=== PATIENT | male | born 1985 | race Caucasian/White ===

== ENCOUNTER 2020-05-07 11:13 | Emergency (ER) | payer OTHER, SELFPAY ==
--- NOTE | ~2020-05-07 | CT_ITS ---
EXAMINATION: CT abdomen pelvis w con INDICATION: Right lower quadrant pain TECHNIQUE: Computed tomographic images of the abdomen and pelvis were obtained after the administrati on of 100 cc of Omnipaque 350 intravenous contrast. The dose-length product (DLP) was 1147.04 mGy-cm. Automated exposure control and iterative reconstruction technique were employed. COMPARISON: None available FINDINGS: Minimal dependent atelectasis is present in the lung bases. The heart size is normal. The l iver, spleen, pancreas, and adrenal glands are normal. Stones are present in the nondistended gallbla dder. The kidneys are unremarkable. No pathologically enlarged abdominal or pelvic lymph nodes are id entified. There is no free intraperitoneal gas or evidence of bowel obstruction. The dilated appendix measures up to 14 mm. There is edematous stranding of the periappendiceal fat. No periappendiceal ab scess or evidence of perforation are identified. IMPRESSION: 1. Acute, uncomplicated appendicitis. Surgical evaluation is recommended. These findings and recommen dations were discussed with Dr. Rosana Butt MD in the Emergency Department at 1300 hours on 0. 2. Cholelithiasis without evidence of cholecystitis. Reviewed, dictated and finalized at location A. IMPRESSION: 1. Acute, uncomplicated appendicitis. Surgical evaluation is recommended. These findings and recommendations were discussed with Dr. Rosana Butt MD in the E mergency Department at 1300 hours on 05/07/2020. 2. Cholelithiasis without evidence of cholecystitis.
[2020-05-07 11:27] VITALS: BP 147/87; PULSE 97; RESP 20; TEMP 36.8; O2SAT 96
--- NOTE | 2020-05-07 11:28 | ED.ABDPAIN ---
HPI - Abdominal Pain General Chief Complaint: Abdominal Pain Stated Complaint: Pain R side Time Seen by Provider: 05/07/20 11:25 History of Present Illness HPI narrative: 34-year-old male is here with chief complaints of right lower abdominal pain that started yesterday evening. The patient states that the pain started as a cramp in the right mid to lower abdomen and has been persistent since then. Patient states that this morning the pain is been worse. He is not hungry. His last meal was last night when he ate some pork chops. He has had 2 episodes of vomiting and 4 episodes of diarrhea. He does complain about mild nausea. He denies any trouble urinating. He denies any associated fever or chills. He denies exposures to COVID-19. The patient states that is usually in good health and has good appetite. He has no known drug allergies. He takes no routine medications. He is a smoker but does not drink alcohol. Related Data Home Medications Medication Instructions Recorded Confirmed No Home Medications 05/07/20 05/07/20 Allergies Allergy/AdvReac Type Severity Reaction Status Date / Time No Known Allergies Allergy Verified 05/07/20 11:26 Review of Systems Review of Systems: All systems reviewed & are unremarkable except as noted in HPI and below Constitutional: Constitutional: Reports fatigue and Reports weakness Eyes: Eyes: Reports as per HPI ENT: Denies dysphagia, Denies vertigo, Denies dizziness, Denies epistaxis, Denies nasal congestion and Denies sore throat Cardiovascular: Cardiovascular: Denies chest pain, Denies rapid heart rate, Denies radiating jaw, neck or arm pain and Denies slow heart rate Respiratory: Respiratory: Denies chest congestion, Denies cough and Denies dyspnea Gastrointestinal: Gastrointestinal: Reports as per HPI, Reports abdominal pain, Reports nausea and Reports vomiting Genitourinary: Genitourinary: Denies penile discharge and Denies testicular pain Integumentary/Breasts: Skin/Breast: Denies pruritus and Denies erythema PMFSH Past Medical History Medical History (Updated 05/07/20 @ 13:31 by Rosana Butt MD) No pertinent past medical history Surgical History Surgical History (Updated 05/07/20 @ 11:46 by Rosana Butt MD) No pertinent past surgical history Social History Social History (Updated 05/07/20 @ 11:47 by Rosana Butt MD) Smoking packs per day: 1 Smoking cigarettes per day: 20.0 Alcohol use details: denies Exam Const: General: healthy appearing and no acute distress Orientation/consciousness: patient oriented x3 HENMT: Head: normal to inspection Ears: external ears normal Mouth: Yes Normal oral and palatal mucosa present and Yes moist mucous membranes Throat: uvula midline Eyes: Pupils: Equal, round and reactive pupils present EOM: EOMs intact bilaterally Neck: Neck: normal visual inspection Chest: Chest palpation & inspection: normal inspection of the chest Resp: Effort & Inspection: normal respiratory effort Auscultation: clear to auscultation bilaterally Cardio: Rate: regular rate Rhythm: regular rhythm GI: GI Palp: Yes Soft to palpation, Yes Tenderness to palpation present (GI) (RUQ and RLQ), Yes Guarding due to palpation present (GI), No Rigid due to palpation and Yes Rebound tenderness present Auscultation: normal bowel sounds Back/Spine/Pelvis: Back: no CVA tenderness and No CVA tenderness Cervical Spine: No collar present Skin: General skin exam: normal color Rashes: no rashes Neuro: General: patient oriented x3, moves all extremities, no meningeal signs, no focal motor deficits and CN's II-XI intact bilaterally Cranial nerves: Yes Nystagmus not present Speech: normal speech Gait exam (Neuro): Normal gait present Extrem: General: normal to inspection, pedal edema present and no edema Psych: Mental Status: mental status grossly normal Thought content: Yes Normal thought content present Course Course Emerge
[2020-05-07] MEDS: KETOROLAC 30 MG/ML VIAL (*BKC) IV PUSH (11:54)
[2020-05-07] MEDS: LACTATED RINGERS 1,000 ML 999 ML IV CONT (11:54)
[2020-05-07 12:05] LABS: Hematocrit 48.3 % (40.0-54.0); Hemoglobin 16.2 g/dL (14.0-18.0); Mean Corpuscular HGB Conc 33.5 g/dL (32.0-36.0); Mean Corpuscular Hemoglobin 31.2 pg (27.0-31.0); Mean Corpuscular Volume 92.9 fL (78.0-102.0); Mean Platelet Volume 10.3 fl (8.7-11.0); Platelet Count Result 251 K/mm3 (150-420); Red Cell Distribution Width 11.9 % (11.6-14.4)
[2020-05-07 12:06] LABS: Add Urine Microscopic? YES; Appearance Urine Clear (Clear); Bilirubin Urine 2+ (Negative); Blood Urine Negative (Negative); Color Urine Yellow (Yellow); Glucose Urine UA Negative (Negative); Ketones Urine 3+ (Negative); Leukocyte Esterase Ur Negative LEU/UL (Negative); Nitrate Urine Negative (Negative); Protein Urine Negative (Negative); Specific Grav Ur >= 1.030 (1.010-1.020)
[2020-05-07 12:10] LABS: White Blood Count 20.4 K/mm3 (4.8-10.8)
[2020-05-07 12:13] LABS: Bacteria Urine 2+ /hpf; Mucus Urine Heavy /lpf; RBC Urine 0-2 /hpf (0-2); Squamous Epithelial Cell Urine None seen /hpf (Few); WBC Urine 0-3 /hpf (0-3)
[2020-05-07 12:14] LABS: INR 1.1; Prothrombin Time 11.1 Seconds (9.64-11.0)
[2020-05-07 12:18] LABS: Alanine Aminotransferase 15 U/L (16-63); Albumin Level 4.7 g/dL (3.4-5.0); Alkaline Phosphatase 73 U/L (46-116); Anion Gap 10 mmol/L (8-16); Aspartate Amino Transferase 11 U/L (15-37); Bilirubin Direct 0.2 mg/dL (0-0.2); Bilirubin,Total 0.8 mg/dL (0.00-1.00); Blood Urea Nitrogen 14 mg/dL (7-18); Carbon Dioxide 23 mmol/L (21-32); Chloride 103 mmol/L (98-108); Estimated CRCL calculation 121 ml/min; Estimated Glomerular Filt Rate > 60; Glucose 119 mg/dL (70-99); Lipase 42 U/L (73-393); Osmolality Calculated 283 mOsm/kg (285-295); Potassium 3.7 mmol/L (3.5-5.1); Sodium 136 mmol/L (136-145); Total Protein 8.4 g/dL (6.4-8.2)
[2020-05-07 12:32] LABS: Band Neutrophils Percent 0 % (0-6); Basophils Percent Manual 1 % (0-1); Eosinophils Percent Manual 0 % (1-6); Lymphocytes Absolute Manual 0.81 K/mm3 (1.1-4.5); Lymphocytes Percent Manual 4 % (18-44); Monocytes Percent Manual 2 % (3-9); Neutrophils Absolute Manual 18.97 K/mm3 (1.3-6.7); Neutrophils Percent Manual 93 % (46-73); Platelet Estimate Adequate (Adequate); Total Cells Counted 100
--- NOTE | 2020-05-07 13:25 | PC.NURSE ---
[facility] TRANSFER LINE CONTACTED. 13[address] DR[address] [facility] ACCEPTED PT FOR TRANSFER. AWAITING BED PLACEMENT.
[2020-05-07 14:06] VITALS: BP 130/74; PULSE 91; RESP 15; TEMP 36.4; O2SAT 100
== END 2020-05-07 14:09 | disposition short-term general hospital (02) ==
PROVIDERS: Emergency Provider Emergency Medicine
DX: K35.80 Unspecified acute appendicitis (principal); F17.200 Nicotine dependence, unspecified, uncomplicated
CPT/HCPCS: 36415; 74177; 80053; 81001; 82248; 83690; 85025; 85610; 96361; 96365; 96375; 99284; 99285; A9270; J1885; J2250; J2543; J3010; J7120; Q9965

== ENCOUNTER 2020-05-07 18:35 | Day surgery (SDC) | payer OTHER, SELFPAY ==
[2020-05-07] VITALS (9 sets, daily range): BP systolic 126–145; BP diastolic 68–86; PULSE 49–78; RESP 13–18; TEMP 36.8–37.1; O2SAT 94–100; BMI 37.3
[2020-05-07] MEDS: LACTATED RINGERS 1,000 ML 30 ML IV CONT (14:45)
--- NOTE | 2020-05-07 15:14 | WPDANESEPPF ---
Anes - Initial Pre Proc Eval Procedure: Operation Date: 05/07/20 15:00 Proposed Procedures p Laparoscopic Appendectomy - Moise Lewis DO Date/Time: 05/07/20 15:14 Surgeon: Moise Lewis DO Pre Op Diagnosis: Acute Appendicitis Patient Data Age: 34 Gender: M Height: Weight: Allergies Allergy/AdvReac Type Severity Reaction Status Date / Time No Known Allergies Allergy Verified 05/07/20 11:26 Home Medications Medication Instructions Recorded Confirmed Type No Home Medications 05/07/20 05/07/20 History Patient hx anesthesia problems: none Family hx anesthesia problems: none PMFSH Past Medical History Medical History Loss of teeth due to extraction Marijuana smoker No pertinent past medical history Obesity Smoker Surgical History Surgical History No pertinent past surgical history Social History Social History Smoking packs per day: 1 Smoking cigarettes per day: 20.0 Anes - Eval Final PreProcedure Day of Procedure 05/07/20 15:14 Patient weight: obese Heart: regular rate and rhythm Lungs: clear to auscultation Airway: Mallampati scale class II and other (edentulous) Neurological: alert and oriented Last oral intake: >/= 8 hours ASA classification: II Emergent: yes Anesthetic plan: proceed Anesthesia type and monitoring: general ETT and standard monitoring Informed Consent: The patient's anesthetic plan and its attendant risks and benefits were discussed with the patient/family/POA. Questions were solicited and answers provided to the satisfaction of the patient/family/POA.
--- NOTE | 2020-05-07 15:20 | PM.IMHP ---
H&P: HPI History of Present Illness Date/Time: 05/07/20 15:20 Chief complaint: Acute Appendicitis Narrative: Shukri Izaguirre is a 34 year old male who presented to [facility] today with right lower quadrant abdominal pain that started last night around 8:00 p.m.. He states that this started as vague abdominal pain but then localized to the right lower quadrant. He has never experienced pain like this in the past. He denies any fevers or chills, but he did have some nausea and vomiting this morning. He has not eaten since last night. In the emergency department he was noted to have an elevated white blood count, and CT showed evidence of acute appendicitis. He was then transferred down to [facility] for further treatment. Review of Systems Review of Systems: All systems reviewed & are unremarkable except as noted in HPI and below Constitutional: Constitutional: Denies chills and Denies fever(s) Eyes: Eyes: Denies change in vision ENT: Denies hearing loss, Denies neck pain and Denies sore throat Cardiovascular: Cardiovascular: Denies chest pain and Denies dyspnea Respiratory: Respiratory: Denies cough, Denies dyspnea and Denies wheezing Gastrointestinal: Gastrointestinal: Reports as per HPI Genitourinary: Genitourinary: Denies hematuria and Denies dysuria Musculoskeletal: Musculoskeletal: Denies arthralgias, Denies joint swelling and Denies neck pain Allergic/Immunologic: Allergic/Immunologic: Denies wheezing PMFSH Past Medical History Medical History Loss of teeth due to extraction Marijuana smoker No pertinent past medical history Obesity Smoker Surgical History Surgical History No pertinent past surgical history Family History Family History (Updated 05/07/20 @ 15:24 by Moise Lewis DO) Mother Heart disease Grandparent Diabetes mellitus Social History Social History Smoking packs per day: 1 Smoking cigarettes per day: 20.0 Meds Home Medications and Allergies Home Medications Medication Instructions Recorded Confirmed Type No Home Medications 05/07/20 05/07/20 History Allergies Allergy/AdvReac Type Severity Reaction Status Date / Time No Known Allergies Allergy Verified 05/07/20 11:26 Exam Const: General: alert; No acute distress Orientation/consciousness: patient oriented x3 Limitations: no limitations HENMT: Head: normocephalic and atraumatic Ears: hearing grossly normal bilaterally General nose exam: Normal external nose present and Normal nares present Mouth: Yes Normal oral and palatal mucosa present and Yes moist mucous membranes Eyes: General: appearance normal, both eyes and all related structures Conjunctivae: conjunctivae normal Sclera: sclerae normal Pupils: Equal, round and reactive pupils present EOM: EOMs intact bilaterally Neck: Neck: normal visual inspection, full ROM, no lymphadenopathy, supple and no JVD Lymphatic: no lymphadenopathy noted Chest: Chest palpation & inspection: normal inspection of the chest Resp: Effort & Inspection: normal respiratory effort and able to speak in complete sentences Auscultation: clear to auscultation bilaterally Percussion: percussion normal Cardio: Jugular venous distension: no JVD Rate: regular rate Rhythm: regular rhythm Heart sounds: S1 normal heart sound present and S2 normal heart sound present Peripheral pulses: Peripheral pulses 2+ throughout GI: Inspection: normal to inspection GI Palp: Yes abdominal tenderness, Yes Soft to palpation, Yes Tenderness to palpation present (GI) (RLQ), No Guarding due to palpation present (GI), No Hernia present and No Rebound tenderness present Percussion: Yes normal to percussion Auscultation: normal bowel sounds : General: Yes no CVA tenderness Back/Spine/Pelvis: Back: no CVA tenderness Skin: General skin exam:
--- NOTE | 2020-05-07 15:27 | WPDHPUPDATE1 ---
History and Physical Update Update Date/Time: 05/07/20 15:27 History and Physical has been reviewed, including an updated exam of the patient. There are NO changes in the patient's condition. Risks, benefits, and alternatives have been discussed and questions answered. Patient agrees to proceed with procedure.
[2020-05-07] MEDS: BUPIVACAINE/EPINEPHRINE 0.5% 30 ML VIAL INFILTRATE (16:12)
--- NOTE | 2020-05-07 16:33 | PM.PROC ---
Procedure Note - Detailed Date of procedure: 05/07/20 Pre-op diagnosis: Acute Appendicitis Post-op diagnosis: same Procedure performed: Laparoscopic Appendectomy Description of procedure: Procedure as well as risks, benefits, and alternatives were explained to the patient. The patient agreed to proceed. Written consent was obtained and placed in chart prior to procedure. The patient was brought back to surgical suite. He was placed supine on operating table. Time-out was done to confirm the patient and procedure. The patient was then intubated by the Anesthesia Department. His abdomen was prepped and draped in sterile fashion using chlorhexidine prep. A 5 mm incision was made just to the left of the patient's umbilicus and a 5 mm Optiview trocar was advanced through the abdominal layers under direct visualization. Once inside the peritoneal cavity, carbon dioxide insufflation was used to create a pneumoperitoneum. The camera was inserted and the abdomen was inspected. No immediate abnormalities were identified. The patient was then placed in slight Trendelenburg position and rotated to the left. A 5 mm incision was made in the suprapubic region in midline and a 5 mm trocar was inserted under direct visualization. A 12 mm incision was made in the left lower quadrant and a 12 mm trocar was inserted under direct visualization. The right lower quadrant was carefully inspected. The cecum was identified and then this was traced back to the appendix. The appendix was identified and grasped at the mesoappendix and lifted anteriorly. Careful blunt dissection was carried out at the base of the appendix through the mesoappendix using a [place] grasper. An echelon-ASH 60 mm blue load stapler was then advanced across the base of the appendix and clamped and fired. A white reload was then clamped across the mesoappendix and fired. This freed up our appendix completely. It was then placed in an EndoCatch bag and removed through the left lower quadrant port. The staple lines were then inspected. Hemostasis appeared adequate and the staple lines appeared secure. The area was then irrigated with sterile saline. The pelvis was then carefully inspected and irrigated with sterile saline as well and the remainder of the abdomen was carefully inspected. The patient was then flattened out in bed. One final inspection was made around the abdominal cavity and no other abnormalities were seen. The left lower quadrant port was removed and a Steve-Reshma cone was used to approximate the fascia with a 0 Vicryl simple interrupted suture. The remaining ports were then removed under direct visualization. The camera was removed and the pneumoperitoneum was released. 0.5% bupivacaine with epinephrine was infiltrated locally around each of the incisions. The skin of the incisions was then approximated using 4-0 Monocryl subcuticular suture and Exofin glue was applied on top. The patient was then awakened from anesthesia, extubated, and transferred to Recovery. Anesthesia: GETA and local (0.5% bupivicaine with epi) Surgeon: Moise Lewis DO Estimated blood loss (mL): 10 Pathology: yes (Appendix) Complications: No immediate complications Condition: stable Disposition: same day Findings: This is 34-year-old man who presented to [facility] with complaints of right lower quadrant abdominal pain. A CT showed evidence of acute appendicitis. He was transferred down to [facility] for further treatment. Decision was made to proceed with urgent laparoscopic appendectomy, possible open. Laparoscopic appendectomy was performed. The appendix was in a slightly retrocecal location. It was indurated and dilated, but there was no evidence of perforation or abscess. The base of the appendix appeared healthy and viable. The appendix was removed and sent to the lab for pathology.
== END 2020-05-07 18:36 | disposition home or self-care (01) ==
LOC: ANHSURGERY 05-08 09:26
PROVIDERS: Visit Provider Surgery
PROC: 0DTJ4ZZ Resection of Appendix, Percutaneous Endoscopic Approach (ICD-10-PCS; CPT 44970; principal; 2020-05-07 15:00)
DX: K35.30 Acute appendicitis with localized peritonitis, without perforation or gangrene (principal); F17.210 Nicotine dependence, cigarettes, uncomplicated; E66.9 Obesity, unspecified; Z68.37 Body mass index [BMI] 37.0-37.9, adult
CPT/HCPCS: 44970; 88304; A9270; J0131; J0330; J1100; J2405; J2704; J3010; J7120

== ENCOUNTER 2020-07-14 14:44 | Emergency (ER) | payer OTHER, SELFPAY ==
--- NOTE | ~2020-07-14 | XR_ITS ---
XR foot RT min 3V DATE: 07/14/2020 15:12 INDICATION: Generalized foot pain. Difficulty bearing weight since surgery one month ago. TECHNIQUE: 4 views COMPARISON: None FINDINGS: No recent fracture or dislocation, periosteal reaction or bone destruction. There is joint space narrowing at the first metatarsophalangeal joint and at some interphalangeal joints, likely con sistent with mild osteoarthritis. Mild plantar calcaneal enthesopathy without evidence of periostitis or erosive change. IMPRESSION: Mild osteoarthritis Mild plantar calcaneal enthesopathy Reviewed, dictated and finalized at location A. [facility]AGGER
--- NOTE | 2020-07-14 14:49 | ED.LOWEXIN ---
HPI - Extremity Injury (Lower) General Chief Complaint: Extremity Problem,Nontraumatic Stated Complaint: foot pain Source: patient and RN notes reviewed Mode of arrival: ambulatory Limitations: no limitations History of Present Illness HPI Narrative: Patient states approximately 2 months ago he was at work and was doing his job as mounting tires on wheels. A tire would not come off the wheel so he kicked it with his foot. Says he kicked backwards with his heel and then about a week later began having pain. He then was laid up due to appendectomy. He recently went back to work and is having heel pain in his right foot when he stands on it for long period of time. He states the pain is not that bad he just wants to know what's wrong. complaint: foot injury Onset (ago): month(s) (2) Injury: Right: foot Type of Injury: blunt Place: work Severity: moderate Relieving factors: nothing Exacerbating factors: weight bearing Context: direct blow Associated symptoms: able to partially bear weight Other symptoms: none Treatments prior to arrival: NSAIDS Related Data Home Medications Medication Instructions Recorded Confirmed No Home Medications 05/22/20 07/14/20 Allergies Allergy/AdvReac Type Severity Reaction Status Date / Time No Known Allergies Allergy Verified 05/22/20 09:39 Review of Systems Review of Systems: All systems reviewed & are unremarkable except as noted in HPI and below PMFSH Past Medical History Medical History Loss of teeth due to extraction Marijuana smoker Obesity Smoker Surgical History Surgical History History of laparoscopic appendectomy Family History Family History Mother Heart disease Grandparent Diabetes mellitus Social History Social History Smoking packs per day: 1 Smoking cigarettes per day: 20.0 Years smoked: 15 Smoking pack-years: 15.00 Smoking status: Current every day smoker Alcohol intake: never Substance use: current Substance use type: marijuana Other substance usage details: 3 TIMES A WEEK Last use: 05/06/2020 Exam Const: General: healthy appearing, no acute distress and alert Nutritional Appearance: well nourished Orientation/consciousness: patient oriented x3 HENMT: Head: normal to inspection Ears: external ears normal Eyes: Conjunctivae: conjunctivae normal Pupils: Equal, round and reactive pupils present EOM: EOMs intact bilaterally Neck: Neck: normal visual inspection Resp: Effort & Inspection: normal respiratory effort Auscultation: clear to auscultation bilaterally Cardio: Rate: regular rate Rhythm: regular rhythm GI: GI Palp: Yes Soft to palpation and No Tenderness to palpation present (GI) Auscultation: normal bowel sounds Back/Spine/Pelvis: Cervical Spine: cervical ROM normal Thoracic/Lumbar Spine: thoraco-lumbar ROM normal Skin: General skin exam: normal color Rashes: no rashes Neuro: General: patient oriented x3, moves all extremities and no focal motor deficits Speech: normal speech Gait exam (Neuro): Normal gait present Extrem: Right lower extremity: foot Details: tenderness Location: of the plantar foot Location: proximally (heel, tender over talus) Psych: Appearance: grossly normal and well kempt Mental Status: mental status grossly normal Affect: normal affect Attitude: cooperative Thought content: Yes Normal thought content present Course Vital Signs Vital signs: Vital Signs Temperature 37.2 C 07/14/20 15:05 Pulse Rate 101 H 07/14/20 15:05 Respiratory Rate 16 07/14/20 15:05 Blood Pressure 142/84 H 07/14/20 15:05 Pulse Oximetry 98 07/14/20 15:05 Temperature 37.2 C 07/14/20 15:05 Pulse Rate 101 H 07/14/20 15:05 Respiratory Rate 16 07/14/20 15:32 Blood Pressure 142/84 H 07/14/20 15:05 Pulse Oximetry 98
[2020-07-14 15:05] VITALS: BP 142/84; PULSE 101; RESP 16; TEMP 37.2; O2SAT 98
[2020-07-14 15:32] VITALS: RESP 16
== END 2020-07-14 15:32 | disposition home or self-care (01) ==
PROVIDERS: Emergency Provider Emergency Medicine
DX: M76.61 Achilles tendinitis, right leg (principal)
CPT/HCPCS: 73630; 99283

== ENCOUNTER 2021-04-07 14:20 | Outpatient (CLI) | payer OTHER, SELFPAY ==
[2021-04-07 14:37] LABS: Hematocrit 48.9 % (40.0-54.0); Hemoglobin 16.5 g/dL (14.0-18.0); Mean Corpuscular HGB Conc 33.7 g/dL (32.0-36.0); Mean Corpuscular Hemoglobin 30.9 pg (27.0-31.0); Mean Corpuscular Volume 91.6 fL (78.0-102.0); Platelet Count Result 302 K/mm3 (150-420); Red Blood Count 5.34 M/mm3 (4.70-6.10); White Blood Count 12.1 K/mm3 (4.8-10.8)
[2021-04-07 15:10] LABS: Alanine Aminotransferase 30 U/L (16-63); Albumin Level 4.4 g/dL (3.4-5.0); Alkaline Phosphatase 95 U/L (46-116); Anion Gap 12 mmol/L (8-16); Aspartate Amino Transferase 15 U/L (15-37); Bilirubin,Total 0.5 mg/dL (0.00-1.00); Blood Urea Nitrogen 12 mg/dL (7-18); Calcium 9.1 mg/dL (8.5-10.1); Carbon Dioxide 27 mmol/L (21-32); Chloride 104 mmol/L (98-108); Cholesterol 197 mg/dL (0-200); Estimated Glomerular Filt Rate > 60; Glucose 85 mg/dL (70-99); HDL Direct 40 mg/dL (40-60); LDL Cholesterol Calculated 138 mg/dL (<130); Osmolality Calculated 294 mOsm/kg (285-295); Potassium 4.3 mmol/L (3.5-5.1); Sodium 143 mmol/L (136-145); Triglycerides 93 mg/dL (0-150)
== END 2021-04-07 14:21 | disposition home or self-care (01) ==
LOC: CHSLAB 14:23
PROVIDERS: PCP Family Medicine; Visit Provider Family Medicine
DX: Z00.00 Encounter for general adult medical examination without abnormal findings (principal)
CPT/HCPCS: 36415; 80053; 80061; 85027

== ENCOUNTER 2022-02-27 20:32 | Emergency (ER) | payer OTHER, SELFPAY ==
--- NOTE | ~2022-02-27 | CT_ITS ---
EXAMINATION: CT abdomen pelvis wo con DATE: 02/27/2022 21:13 INDICATION: right flank pain X 2 HOURS/NO HX OF STONES TECHNIQUE: Computed tomography (CT) of the abdomen and pelvis was performed without intravenous contr ast. Automated exposure control and iterative reconstruction technique were employed. The dose-length product was 1451.70 mGy-cm. COMPARISON: 05/07/2020. FINDINGS: Lower thorax: Unremarkable Liver: Normal. Biliary/Gallbladder: Cholelithiasis. No bile duct dilation. Pancreas: No mass or duct dilation. Spleen: Normal. Adrenals:No mass. Kidneys: No renal mass or calcification. 3 mm right UPJ stone causing moderate hydronephrosis GI tract: No small or large bowel dilation. Colonic submucosal fat as can be seen with chronic IBD, o besity, chemotherapy treatment, and celiac disease. Appendix is surgically absent. Mesentery/Peritoneum: No ascites, mass, or free air. Retroperitoneum: No mass. Pelvis: Pelvic organs are within normal limits. Soft Tissues: Soft tissues and body wall unremarkable. Bones: No acute osseous finding. IMPRESSION: 3 mm right UPJ stone causing moderate obstructive uropathy. Reviewed, dictated and finalized at location K.
[2022-02-27 20:41] VITALS: BP 152/85; PULSE 60; RESP 20; TEMP 36.4; O2SAT 95
--- NOTE | 2022-02-27 20:44 | ED.BACK ---
HPI - Back Pain/Injury General Chief Complaint: Back Pain/Injury Stated Complaint: pain R lower back (inside) Time Seen by Provider: 02/27/22 20:44 History of Present Illness HPI Narrative: 33-year-old male patient otherwise healthy is in the ER with complaints of pain in the right back and flank area that started approximately 2 hours ago. The pains radiates to the right lower abdomen and groin area. Patient has had 2 episodes of vomiting. The pain is relentless. He has not been able to go to the bathroom because of the pain. He denies any injury to the back. He denies any prior episode of pain like this. Patient is generally in good health and takes no routine medications. Patient rates pain at 10/10 and states that is constant. There is no radiation of pain into the buttocks. There is no associated numbness or tingling of the lower extremities. Related Data Allergies Allergy/AdvReac Type Severity Reaction Status Date / Time No Known Allergies Allergy Verified 02/27/22 20:44 Review of Systems Review of Systems: All systems reviewed & are unremarkable except as noted in HPI and below Constitutional: Constitutional: Reports no additional constitutional complaints Eyes: Eyes: Reports no additional eye complaints ENT: Reports system reviewed and no additional complaints, except as documented Cardiovascular: Cardiovascular: Reports no additional cardiovascular complaints Respiratory: Respiratory: Reports no additional respiratory complaints Gastrointestinal: Gastrointestinal: Reports no additional gastrointestinal complaints Genitourinary: Genitourinary: Reports no additional male genitourinary complaints Musculoskeletal: Musculoskeletal: Reports no additional musculoskeletal complaints Integumentary/Breasts: Skin/Breast: Reports system reviewed and no additional complaints, except as docu Neurologic: Reports system reviewed and no additional complaints, except as documented Psychiatric: Psychiatric: Reports no additional psychiatric complaints Endocrine: Endocrine: Reports no additional endocrine complaints Hematologic/Lymphatic: Hematologic/Lymphatic: Reports no additional hematologic/lymphatic complaints Allergic/Immunologic: Allergic/Immunologic: Reports no additional allergic/immunologic complaints PMFSH Past Medical History Medical History Loss of teeth due to extraction Marijuana smoker Obesity Smoker Surgical History Surgical History History of laparoscopic appendectomy Family History Family History Mother Heart disease Grandparent Diabetes mellitus Social History Social History Smoking packs per day: 1 Smoking cigarettes per day: 20.0 Years smoked: 15 Smoking pack-years: 15.00 Smoking status: Current every day smoker Alcohol intake: never Alcohol use details: denies Substance use: current Substance use type: marijuana Other substance usage details: 3 TIMES A WEEK Last use: 05/06/2020 Exam Narrative: Alert male patient in acute pain distress . Vital signs are stable except blood pressure initially is slightly elevated to 152/85. Patient is afebrile. HEENT: normocephalic. Pupils midsize equal and reactive to light. EOMs intact. Ear nose throat normal. Oral mucous membranes are pink and moist. Neck is supple. No adenopathy. Chest is nontender. Breath sounds are audible bilaterally. Heart tones are regular. Spine is normal curvature. Patient does have tenderness to the right flank area. There is no midline tenderness in the spine. Patient also has tenderness in the right mid abdomen on deep palpation. No guarding or rebound or rigidity is noted. No organomegaly. Rectal and genital exams have been deferred at this time. Skin is warm and dry and color is normal. Neurologic exam is shy
[2022-02-27 21:12] LABS: Basophils Absolute Auto 0.06 K/mm3 (0.00-0.10); Basophils Percent Auto 0.7 % (0.0-1.0); Eosinophils Absolute Auto 0.18 K/mm3 (0.02-0.50); Hematocrit 46.8 % (40.0-54.0); Hemoglobin 15.2 g/dL (14.0-18.0); Immature Granulocyte Absolute 0.02 K/mm3 (0.00-0.00); Immature Granulocyte Percent A 0.2 % (0.0-0.0); Lymphocytes Absolute Auto 3.28 K/mm3 (1.10-4.50); Lymphocytes Percent Auto 36.4 % (18.0-42.0); Mean Corpuscular HGB Conc 32.5 g/dL (32.0-36.0); Mean Corpuscular Volume 92.5 fL (78.0-102.0); Mean Platelet Volume 10.8 fl (8.7-11.0); Monocytes Absolute Auto 0.51 K/mm3 (0.10-0.90); Monocytes Percent Auto 5.7 % (2.0-11.0); Platelet Count Result 234 K/mm3 (150-420); Red Blood Count 5.06 M/mm3 (4.70-6.10); Red Cell Distribution Width 12.4 % (11.6-14.4)
[2022-02-27 21:33] LABS: Add Urine Microscopic? YES; Bilirubin Urine Negative (Negative); Blood Urine 3+ (Negative); Color Urine Yellow (Yellow); Glucose Urine UA Negative (Negative); Ketones Urine Negative (Negative); Leukocyte Esterase Ur Negative (Negative); Nitrate Urine Negative (Negative); Protein Urine 1+ (Negative); Specific Grav Ur >= 1.030 (1.010-1.020)
[2022-02-27] MEDS: ONDANSETRON INJ 4 MG/2 ML VIAL IV PUSH (21:41)
[2022-02-27] MEDS: KETOROLAC 30 MG/ML VIAL (*BKC) IV PUSH (21:41)
[2022-02-27 21:45] LABS: Appearance Urine Turbid (Clear); Calcium Oxalate Crystals Urine Present /hpf; Mucus Urine Heavy /lpf; RBC Urine >75 /hpf (0-2)
[2022-02-27] MEDS: TAMSULOSIN HCL 0.4 MG CAPSULE PO (22:00)
[2022-02-27] MEDS: HYDROmorphone HCL INJ (*CRX) 2 MG/ML VIAL 1 MG IV PUSH (22:01)
[2022-02-27 22:32] VITALS: BP 124/82; PULSE 77; RESP 16; O2SAT 97
[2022-02-27 23:10] LABS: Alanine Aminotransferase 16 U/L (16-63); Albumin Level 4.2 g/dL (3.4-5.0); Alkaline Phosphatase 72 U/L (46-116); Anion Gap 13 mmol/L (8-16); Aspartate Amino Transferase 15 U/L (15-37); Bilirubin,Total 0.5 mg/dL (0.00-1.00); Blood Urea Nitrogen 11 mg/dL (7-18); Carbon Dioxide 23 mmol/L (21-32); Chloride 105 mmol/L (98-108); Estimated Glomerular Filt Rate > 60; Glucose 122 mg/dL (70-99); Osmolality Calculated 292 mOsm/kg (285-295); Potassium 3.1 mmol/L (3.5-5.1); Sodium 141 mmol/L (136-145); Total Protein 7.7 g/dL (6.4-8.2)
== END 2022-02-27 22:32 | disposition home or self-care (01) ==
PROVIDERS: Emergency Provider Emergency Medicine; PCP Family Medicine
DX: N23 Unspecified renal colic (principal)
CPT/HCPCS: 36415; 74176; 80053; 81001; 85025; 96374; 96375; 99284; A9270; J1170; J1885; J2405

== ENCOUNTER 2022-03-13 10:42 | Emergency (ER) | payer OTHER, SELFPAY ==
--- NOTE | ~2022-03-13 | CT_ITS ---
EXAMINATION: CT abdomen pelvis wo con DATE: 03/13/2022 11:30 INDICATION: Right flank pain with nausea and vomiting TECHNIQUE: Computed tomography (CT) of the abdomen and pelvis was performed without intravenous contr ast. Automated exposure control and iterative reconstruction technique were employed. The dose-length product was 1246.51 mGy-cm. COMPARISON: 02/27/2022 and 05/07/2020 FINDINGS: Lung bases are clear. Heart size is normal. No pericardial or pleural effusion. A couple calcified ga llstones in the otherwise normal-appearing gallbladder with no wall thickening or pericholecystic inf lammatory stranding to suggest acute cholecystitis. Liver, spleen, pancreas, bilateral adrenal glands and left kidney are normal. 2-3 mm obstructing stone at the right ureterovesicular junction with mil d right hydroureteronephrosis with some right perinephric stranding. Suture line extending from the t ip the cecum to the caudal tip of the liver likely related to prior appendectomy with no visualized a ppendix. Bowels are otherwise unremarkable with no obstruction. No free intraperitoneal gas or fluid. No pathologically enlarged abdominal or pelvic lymphadenopathy. Chronic minimal to mild anterior wed ging at a few lower thoracic and upper lumbar vertebral bodies. IMPRESSION: 1. Obstructing 2-3 mm stone at the right ureterovesicular junction with mild right hydronephrosis and some right perinephric stranding. Correlate with urinalysis to exclude associated ascending urinary tract infection. Reviewed, dictated and finalized at location A. IMPRESSION: 1. Obstructing 2-3 mm stone at the right ureterovesicular junction with mild ri ght hydronephrosis and some right perinephric stranding. Correlate with urinaly sis to exclude associated ascending urinary tract infection.
--- NOTE | 2022-03-13 11:06 | ED.ABDPAIN ---
HPI - Abdominal Pain General Chief Complaint: Urogenital-Male Stated Complaint: Right side kidney pain Time Seen by Provider: 03/13/22 10:50 Source: patient and RN notes reviewed Mode of arrival: ambulatory Limitations: no limitations History of Present Illness HPI narrative: patient states he was here 13 days ago and was diagnosed with a kidney stone on the right side then. He said the pain is never really got better. He did Flomax and then went to see his primary care physician yesterday who gave him another Toradol shot. He says he has been straining all of his urine since then and has not seen the stone yet. MD elicited complaint: flank pain Pertinent past history: kidney stones Onset (ago): day(s) (13) Pain Consistency: colicky Location: R flank Severity: moderate Quality: cramping, stabbing and sharp Radiation: RLQ Migration to: other ( Testicle) Exacerbating factors: nothing Relieving factors: nothing Associated symptoms: nausea Related Data Allergies Allergy/AdvReac Type Severity Reaction Status Date / Time No Known Allergies Allergy Verified 03/12/22 08:02 Review of Systems Review of Systems: All systems reviewed & are unremarkable except as noted in HPI and below Constitutional: Constitutional: Denies chills and Denies fever(s) PMFSH Past Medical History Medical History Loss of teeth due to extraction Marijuana smoker Obesity Smoker Surgical History Surgical History History of laparoscopic appendectomy Family History Family History Mother Heart disease Grandparent Diabetes mellitus Social History Social History Smoking packs per day: 1 Smoking cigarettes per day: 20.0 Years smoked: 15 Smoking pack-years: 15.00 Smoking status: Current every day smoker Alcohol intake: never Alcohol use details: denies Substance use: current Substance use type: marijuana Other substance usage details: 3 TIMES A WEEK Last use: 05/06/2020 Exam Const: General: healthy appearing, no acute distress and alert Nutritional Appearance: well nourished Orientation/consciousness: patient oriented x3 Limitations: no limitations HENMT: Head: normal to inspection Ears: external ears normal Eyes: Conjunctivae: conjunctivae normal Pupils: Equal, round and reactive pupils present EOM: EOMs intact bilaterally Neck: Neck: normal visual inspection Chest: Chest palpation & inspection: normal inspection of the chest Resp: Effort & Inspection: normal respiratory effort Auscultation: clear to auscultation bilaterally Cardio: Rate: regular rate Rhythm: regular rhythm GI: GI Palp: Yes Soft to palpation, Yes Tenderness to palpation present (GI) ( moderate right lower quadrant) and Yes Guarding due to palpation present (GI) ( moderate right lower quadrant) Auscultation: normal bowel sounds Back/Spine/Pelvis: Back: CVA tenderness ( moderate on the right) Cervical Spine: cervical ROM normal Thoracic/Lumbar Spine: thoraco-lumbar ROM normal Skin: General skin exam: normal color Rashes: no rashes Neuro: General: patient oriented x3, moves all extremities, no focal motor deficits and CN's II-XI intact bilaterally Speech: normal speech Gait exam (Neuro): Normal gait present Course Course Emergency Course: I discussed the case with Dr. Smith, urologist on-call for [facility]. I reviewed both CT scans with him he says that the stone has moved significantly and that it should be passing on its own in the next few days. Recommended anti-inflammatories. With possible evidence of infection on CT scan I am going to cover him with some antibiotics. Vital Signs Vital signs: Vital Signs Temperature 37.1 C 03/13/22 11:09 Pulse Rate 86 03/13/22 11:09 Respiratory Rate 20 03/13/22 11:09 Blood Pressure 141/93 H 03/13/22 1
[2022-03-13 11:09] VITALS: BP 141/93; PULSE 86; RESP 20; TEMP 37.1; O2SAT 98
[2022-03-13] MEDS: KETOROLAC 30 MG/ML VIAL (*BKC) IV PUSH (11:18)
[2022-03-13] MEDS: SODIUM CHLORIDE 0.9% IV 1,000 ML 999 ML IV CONT (11:18)
[2022-03-13 11:25] LABS: Basophils Absolute Auto 0.04 K/mm3 (0.00-0.10); Basophils Percent Auto 0.3 % (0.0-1.0); Eosinophils Absolute Auto 0.03 K/mm3 (0.02-0.50); Eosinophils Percent Auto 0.2 % (1.0-6.0); Hematocrit 42.9 % (40.0-54.0); Hemoglobin 14.8 g/dL (14.0-18.0); Immature Granulocyte Absolute 0.05 K/mm3 (0.00-0.00); Immature Granulocyte Percent A 0.4 % (0.0-0.0); Lymphocytes Absolute Auto 1.35 K/mm3 (1.10-4.50); Lymphocytes Percent Auto 10.1 % (18.0-42.0); Mean Corpuscular HGB Conc 34.5 g/dL (32.0-36.0); Mean Corpuscular Hemoglobin 31.5 pg (27.0-31.0); Mean Corpuscular Volume 91.3 fL (78.0-102.0); Mean Platelet Volume 10.7 fl (8.7-11.0); Monocytes Absolute Auto 0.86 K/mm3 (0.10-0.90); Monocytes Percent Auto 6.4 % (2.0-11.0); Neutrophils Absolute Auto 11.1 K/mm3 (1.7-7.2); Neutrophils Percent Auto 82.6 % (50.0-70.0); Platelet Count Result 246 K/mm3 (150-420); Red Cell Distribution Width 12.4 % (11.6-14.4); White Blood Count 13.4 K/mm3 (4.8-10.8)
[2022-03-13 11:26] LABS: Appearance Urine Clear (Clear); Bilirubin Urine Negative (Negative); Color Urine Yellow (Yellow); Glucose Urine UA Negative (Negative); Ketones Urine Negative (Negative); Leukocyte Esterase Ur Negative LEU/UL (Negative); Nitrate Urine Negative (Negative); Protein Urine Trace (Negative); Urobilinogen Urine 0.2 mg/dL (0.2-1.0)
[2022-03-13 11:31] LABS: Add Urine Microscopic? YES; Bacteria Urine Trace /hpf; Blood Urine Trace-Intact (Negative); Mucus Urine Few /lpf; RBC Urine 0-2 /hpf (0-2); WBC Urine None seen /hpf (0-3)
[2022-03-13 11:41] LABS: Alanine Aminotransferase 19 U/L (16-63); Albumin Level 3.9 g/dL (3.4-5.0); Alkaline Phosphatase 70 U/L (46-116); Anion Gap 9 mmol/L (8-16); Aspartate Amino Transferase 15 U/L (15-37); Bilirubin,Total 0.5 mg/dL (0.00-1.00); Blood Urea Nitrogen 18 mg/dL (7-18); Calcium 8.5 mg/dL (8.5-10.1); Carbon Dioxide 25 mmol/L (21-32); Chloride 106 mmol/L (98-108); Estimated CRCL calculation 82 ml/min; Estimated Glomerular Filt Rate 56; Glucose 114 mg/dL (70-99); Osmolality Calculated 292 mOsm/kg (285-295); Potassium 3.9 mmol/L (3.5-5.1); Sodium 140 mmol/L (136-145)
[2022-03-13] MEDS: ONDANSETRON INJ 4 MG/2 ML VIAL (11:42)
[2022-03-13] MEDS: HYDROmorphone HCL INJ (*CRX) 2 MG/ML VIAL 1 MG IV PUSH (11:48)
[2022-03-13 13:03] VITALS: BP 138/74; PULSE 82; RESP 18; TEMP 36.9; O2SAT 98
== END 2022-03-13 13:13 | disposition home or self-care (01) ==
PROVIDERS: Emergency Provider Emergency Medicine; PCP Family Medicine
DX: N20.1 Calculus of ureter (principal)
CPT/HCPCS: 36415; 74176; 80053; 81001; 85025; 96361; 96374; 96375; 99284; J1170; J1885; J2405; J7030

== ENCOUNTER 2022-07-16 18:20 | Emergency (ER) | payer OTHER, SELFPAY ==
--- NOTE | ~2022-07-16 | CT_ITS ---
EXAMINATION:CT diagnostic chest wo con DATE: 07/16/2022 19:27 INDICATION: Right posterior rib injury and pain. TECHNIQUE: Computed tomography (CT) of the chest was performed without intravenous contrast. Automate d exposure control and iterative reconstruction technique were employed. The dose-length product (DLP ) was 376.49 mGy-cm. COMPARISON: CT abdomen and pelvis 03/13/2022, 02/27/22, 05/07/20 FINDINGS: The lungs demonstrate minimal atelectasis. There is an 11 mm nodule in left lower lobe. No pleural effusion. The heart size is normal. No pericardial effusion. There is a gallstone in the gall bladder. There is mild chronic anterior wedging of multiple vertebral bodies. There is mild thoracic spondylosis. IMPRESSION: 1. No rib fracture. 2. 11 mm pulmonary nodule, stable from 03/13/2022 and not included on earlier imaging. This finding may be granulomatous disease or primary bronchogenic carcinoma. Consider PET/CT. Reviewed, dictated and finalized at location A. [employer] IMPRESSION: 1. No rib fracture. 2. 11 mm pulmonary nodule, stable from 03/13/2022 and not included on earlier shagufta ging. This finding may be granulomatous disease or primary bronchogenic carcino ma. Consider PET/CT.
[2022-07-16 18:29] VITALS: BP 154/84; PULSE 84; PULSE 89; RESP 16; RESP 20; TEMP 36.7; TEMP 36.9; O2SAT 99
--- NOTE | 2022-07-16 20:03 | ED.BACK ---
HPI - Back Pain/Injury General Chief Complaint: Back Pain/Injury Stated Complaint: back pain Time Seen by Provider: 07/16/22 18:22 Source: patient and RN notes reviewed Mode of arrival: ambulatory Limitations: no limitations History of Present Illness MD elicited complaint: back pain and back injury Pertinent past history: recent trauma Onset (ago): hour(s) (4) Timing: constant Severity: moderate Pain scale (0-10): 7 Quality: sharp and aching Location: right upper back Radiation: none Exacerbating factors: deep breaths Relieving factors: immobilization Context: trauma Related Data Allergies Allergy/AdvReac Type Severity Reaction Status Date / Time No Known Allergies Allergy Verified 07/16/22 18:41 Review of Systems Review of Systems: All systems reviewed & are unremarkable except as noted in HPI and below Constitutional: Constitutional: Reports no additional constitutional complaints Eyes: Eyes: Reports no additional eye complaints ENT: Reports system reviewed and no additional complaints, except as documented Cardiovascular: Cardiovascular: Reports no additional cardiovascular complaints Respiratory: Respiratory: Reports no additional respiratory complaints Gastrointestinal: Gastrointestinal: Reports no additional gastrointestinal complaints Musculoskeletal: Musculoskeletal: Reports no additional musculoskeletal complaints and Reports back pain Integumentary/Breasts: Skin/Breast: Reports system reviewed and no additional complaints, except as docu Neurologic: Reports system reviewed and no additional complaints, except as documented Psychiatric: Psychiatric: Reports no additional psychiatric complaints Endocrine: Endocrine: Reports no additional endocrine complaints Hematologic/Lymphatic: Hematologic/Lymphatic: Reports no additional hematologic/lymphatic complaints Allergic/Immunologic: Allergic/Immunologic: Reports no additional allergic/immunologic complaints PMFSH Past Medical History Medical History Loss of teeth due to extraction Marijuana smoker Obesity Pleurisy without effusion Smoker Surgical History Surgical History History of laparoscopic appendectomy Family History Family History Mother Heart disease Grandparent Diabetes mellitus Social History Social History Smoking packs per day: 1 Smoking cigarettes per day: 20.0 Years smoked: 15 Smoking pack-years: 15.00 Smoking status: Current every day smoker Alcohol intake: never Alcohol use details: denies Substance use: current Substance use type: marijuana Other substance usage details: 3 TIMES A WEEK Last use: 05/06/2020 Exam Const: General: healthy appearing, no acute distress and well nourished Nutritional Appearance: well nourished Orientation/consciousness: patient oriented x3 Limitations: no limitations HENMT: Head: normal to inspection Ears: external ears normal, TM's normal bilaterally and EAC's normal Face/Nose/Sinus: Normal external nose present, Normal nares present, normal facial exam and sinuses nontender Face and sinus: normal facial exam and sinuses nontender Mouth: Yes Normal oral and palatal mucosa present and Yes moist mucous membranes Teeth and gingiva: dentition normal Throat: posterior oropharynx normal Eyes: Conjunctivae: conjunctivae normal Pupils: Equal, round and reactive pupils present EOM: EOMs intact bilaterally Neck: Neck: normal visual inspection, no lymphadenopathy and no meningeal signs Chest: Chest palpation & inspection: normal inspection of the chest Resp: Effort & Inspection: normal respiratory effort Auscultation: clear to auscultation bilaterally Cardio: Rate: regular rate Rhythm: regular rhythm GI: GI Palp: Yes Soft to palpation and No Tenderness to palpation present (GI) Auscultation:
[2022-07-16 20:20] VITALS: BP 130/98; PULSE 86; RESP 20; TEMP 36.6; O2SAT 96
== END 2022-07-16 20:25 | disposition home or self-care (01) ==
PROVIDERS: Emergency Provider Emergency Medicine; PCP Family Medicine
DX: R09.1 Pleurisy (principal)
CPT/HCPCS: 71250; 99284

== ENCOUNTER 2022-08-05 11:55 | Outpatient (CLI) | payer OTHER, SELFPAY ==
--- NOTE | ~2022-08-05 | PE_ITS ---
EXAMINATION: PET skull to mid thigh DATE: 08/05/2022 13:50 INDICATION: Solitary pulmonary nodule. TECHNIQUE: Blood glucose level was 101 mg/dL. 10.947 mCi of 18-fluorodeoxyglucose (18-FDG) was admini stered i.v. Low dose computed tomography (CT) images were acquired from the base of the brain to the proximal thighs for attenuation correction and anatomic localization. Automated exposure control was employed. Dose-length product (DLP) was 1372 mGy-cm. Positron emission tomography (PET) images were a cquired in the same distribution. COMPARISON: Chest CT 07/16/2022, CT abdomen and pelvis 03/13/22 FINDINGS: Head/neck: There is increased activity in the oral cavity, pharynx, major salivary glands, and glotti s without abnormal CT correlate, likely physiologic. There are no pathologically enlarged lymph nodes . Chest: There is an 11 mm nodule in left lower lobe with maximum SUV of 0.9. No pleural effusion. The heart size is normal. No pericardial effusion. Abdomen/pelvis/proximal thighs: The liver is normal. There are gallstones in the gallbladder, which i s normal in size. The spleen, pancreas, adrenal glands, and kidneys are normal. There are no dilated loops of bowel. There are no pathologically enlarged lymph nodes. There is no free intraperitoneal fl uid. There is no osseous malignancy. IMPRESSION: 1. 11 mm left lower lobe pulmonary nodule without increased activity, stable from 03/13/2022, likely be nign. Consider noncontrast low-dose chest CT in one year. Reviewed, dictated and finalized at location A. [employer] IMPRESSION: 1. 11 mm left lower lobe pulmonary nodule without increased activity, stable fr om 03/13/2022, likely benign. Consider noncontrast low-dose chest CT in one year.
[2022-08-05 12:22] LABS: Glucose Point of Care 101 mg/dl (65-105)
== END 2022-08-05 11:56 | disposition home or self-care (01) ==
PROVIDERS: PCP Family Medicine; Visit Provider Family Medicine
DX: R91.1 Solitary pulmonary nodule (principal)
CPT/HCPCS: 78815; A9552

== ENCOUNTER 2023-03-22 16:45 | Emergency (ER) | payer OTHER, SELFPAY ==
--- NOTE | ~2023-03-22 | CT_ITS ---
EXAMINATION: CT abdomen pelvis wo con DATE: 03/22/2023 17:18 INDICATION: right flank pain history of kidney stone TECHNIQUE: Computed tomography (CT) of the abdomen and pelvis was performed without intravenous contr ast. Automated exposure control and iterative reconstruction technique were employed. The dose-length product was 507.63 mGy-cm. COMPARISON: 03/13/2022, 02/27/2022, 05/07/2020; CT chest 07/16/2022; PET/CT 08/05/2022. FINDINGS: Lower thorax: 11 mm lower lobe nodule. Liver: Normal. Biliary/Gallbladder: Cholelithiasis. No bile duct dilation. Pancreas: No mass or duct dilation. Spleen: Normal. Adrenals:No mass. Kidneys: Mild right perinephric stranding. Moderate right pelviectasis and caliectasis. Mild right ur eterectasis. The left kidney is normal. GI tract: No small or large bowel dilation. The appendix is surgically absent. Mesentery/Peritoneum: No ascites, mass, or free air. Retroperitoneum: No mass. Pelvis: 3 mm distal right ureteral calcification just proximal to the right UVJ. The urinary bladder is empty. Soft Tissues: Soft tissues and body wall unremarkable. Bones: No acute osseous finding. IMPRESSION: 3 mm distal right ureteral stone causing moderate obstructive uropathy. This likely represents the sa me stone seen in the prior studies. 11 mm left lower lobe nodule. Prior recommendation for CT chest follow-up is unchanged (due for follo w-up in August of this year). Reviewed, dictated and finalized at location K. IMPRESSION: 3 mm distal right ureteral stone causing moderate obstructive uropathy. This li awilda represents the same stone seen in the prior studies. 11 mm left lower lobe nodule. Prior recommendation for CT chest follow-up is un changed (due for follow-up in August of this year).
[2023-03-22 16:45] VITALS: BP 139/92; PULSE 56; RESP 22; TEMP 36.1; O2SAT 98
--- NOTE | 2023-03-22 16:51 | ED.ABDPAIN ---
HPI - Abdominal Pain General Chief Complaint: Back Pain/Injury Stated Complaint: RIGHT SIDE FLANK PAIN Time Seen by Provider: 03/22/23 16:50 Source: patient and RN notes reviewed Mode of arrival: ambulatory Limitations: no limitations History of Present Illness MD elicited complaint: flank pain Pertinent past history: kidney stones Onset (ago): day(s) ( since this morning) Pain Consistency: constant Location: R flank Severity: moderate Quality: stabbing and sharp Radiation: none Migration to: no migration Exacerbating factors: movement Relieving factors: nothing Related Data Home Medications Medication Instructions Recorded Confirmed No Home Medications 03/22/23 03/22/23 Allergies Allergy/AdvReac Type Severity Reaction Status Date / Time No Known Allergies Allergy Verified 03/22/23 16:54 Review of Systems Review of Systems: All systems reviewed & are unremarkable except as noted in HPI and below PMFSH Past Medical History Medical History (Updated 03/22/23 @ 18:12 by Fernando Do MD) Loss of teeth due to extraction Marijuana smoker Obesity Pleurisy without effusion Smoker Ureterolithiasis Surgical History Surgical History History of laparoscopic appendectomy Family History Family History Mother Heart disease Grandparent Diabetes mellitus Social History Social History Smoking packs per day: 1 Smoking cigarettes per day: 20.0 Years smoked: 15 Smoking pack-years: 15.00 Smoking status: Current every day smoker Alcohol intake: never Alcohol use details: denies Substance use: current Substance use type: marijuana Other substance usage details: 3 TIMES A WEEK Last use: 05/06/2020 Living arrangements: with family Exam Const: General: healthy appearing, alert and ill appearing acutely Nutritional Appearance: well nourished and obese Orientation/consciousness: patient oriented x3 Limitations: no limitations HENMT: Head: normal to inspection Ears: external ears normal Face/Nose/Sinus: Normal external nose present Face and sinus: normal facial exam Mouth: Yes moist mucous membranes Eyes: Conjunctivae: conjunctivae normal Pupils: Equal, round and reactive pupils present EOM: EOMs intact bilaterally Neck: Neck: normal visual inspection Resp: Effort & Inspection: normal respiratory effort Auscultation: clear to auscultation bilaterally Cardio: Rate: regular rate Rhythm: regular rhythm GI: GI Palp: Yes Soft to palpation and Yes Tenderness to palpation present (GI) ( moderate right lower quadrant) Auscultation: normal bowel sounds Back/Spine/Pelvis: Back: CVA tenderness ( severe in the right) Cervical Spine: cervical ROM normal Thoracic/Lumbar Spine: thoraco-lumbar ROM normal Skin: General skin exam: normal color Rashes: no rashes Neuro: General: patient oriented x3, moves all extremities, no focal motor deficits and CN's II-XI intact bilaterally Speech: normal speech Gait exam (Neuro): Normal gait present Extrem: General: normal to inspection and no clubbing, cyanosis or edema Psych: Mental Status: mental status grossly normal Affect: normal affect Attitude: cooperative Course Course Emergency Course: patient did not have much pain relief from the Toradol 30 mg IV. He drove himself here and did not have a ride home, finally his mother did show up and is willing to drive him home he is then given Dilaudid 1 mg IV. patient states that he does not want to be transferred to [facility]. He wants to go home AMA and then he said he will go to the emergency room at [facility] tomorrow. He is aware that he has to start over with another emergency room visit. He understands that he will not have any pain control overnight. Consultations Consultation #1: Dr. Lockhart , urology called back a
[2023-03-22] MEDS: KETOROLAC 30 MG/ML VIAL (*BKC) IV PUSH (17:03)
[2023-03-22] MEDS: ONDANSETRON INJ 4 MG/2 ML VIAL IV PUSH (17:06)
[2023-03-22 17:13] LABS: Basophils Absolute Auto 0.04 K/mm3 (0.00-0.10); Basophils Percent Auto 0.2 % (0.0-1.0); Eosinophils Absolute Auto 0.01 K/mm3 (0.02-0.50); Eosinophils Percent Auto 0.1 % (1.0-6.0); Hematocrit 46.6 % (40.0-54.0); Hemoglobin 15.8 g/dL (14.0-18.0); Immature Granulocyte Absolute 0.07 K/mm3 (0.00-0.00); Immature Granulocyte Percent A 0.4 % (0.0-0.0); Lymphocytes Absolute Auto 1.24 K/mm3 (1.10-4.50); Lymphocytes Percent Auto 6.8 % (18.0-42.0); Mean Corpuscular HGB Conc 33.9 g/dL (32.0-36.0); Mean Corpuscular Hemoglobin 31.1 pg (27.0-31.0); Mean Corpuscular Volume 91.7 fL (78.0-102.0); Monocytes Absolute Auto 0.52 K/mm3 (0.10-0.90); Monocytes Percent Auto 2.9 % (2.0-11.0); Neutrophils Absolute Auto 16.3 K/mm3 (1.7-7.2); Neutrophils Percent Auto 89.6 % (50.0-70.0); Platelet Count Result 280 K/mm3 (150-420); Red Blood Count 5.08 M/mm3 (4.70-6.10); Red Cell Distribution Width 12.4 % (11.6-14.4); White Blood Count 18.2 K/mm3 (4.8-10.8)
[2023-03-22 17:28] LABS: Alanine Aminotransferase 19 U/L (16-63); Albumin Level 4.3 g/dL (3.4-5.0); Alkaline Phosphatase 84 U/L (46-116); Anion Gap 11 mmol/L (8-16); Aspartate Amino Transferase 24 U/L (15-37); Bilirubin,Total 0.5 mg/dL (0.00-1.00); Blood Urea Nitrogen 14 mg/dL (7-18); CRP < 0.5 mg/dL (0.0-0.9); Carbon Dioxide 26 mmol/L (21-32); Chloride 105 mmol/L (98-108); Estimated Glomerular Filt Rate > 60; Glucose 129 mg/dL (70-99); Osmolality Calculated 296 mOsm/kg (285-295); Potassium 4.5 mmol/L (3.5-5.1); Sodium 142 mmol/L (136-145); Total Protein 7.9 g/dL (6.4-8.2)
[2023-03-22 17:35] LABS: Appearance Urine Cloudy (Clear); Bilirubin Urine 1+ (Negative); Blood Urine 3+ (Negative); Color Urine Yellow (Yellow); Glucose Urine UA Negative (Negative); Ketones Urine 1+ (Negative); Leukocyte Esterase Ur Negative LEU/UL (Negative); Nitrate Urine Negative (Negative); Protein Urine 1+ (Negative); Specific Grav Ur >= 1.030 (1.010-1.020)
[2023-03-22 17:46] LABS: Add Urine Microscopic? YES; Amorphous Sediment Urine Heavy; Bacteria Urine 2+ /hpf; Mucus Urine Few /lpf; WBC Urine 0-3 /hpf (0-3)
--- NOTE | 2023-03-22 17:52 | PC.NURSE ---
PT IS RESTING ON STRETCHER QUIETLY. PT IS NO LONGER HAVING EMESIS, MOANING, OR RESTLESS. PT IS AWAITING RESULTS. WILL CONTINUE TO MONITOR.
[2023-03-22 18:02] VITALS: BP 149/82; PULSE 58; RESP 16; O2SAT 98
[2023-03-22] MEDS: HYDROmorphone HCL INJ (*CRX) 2 MG/ML VIAL 1 MG IV PUSH (18:13)
--- NOTE | 2023-03-22 18:24 | PC.NURSE ---
MOTHER ARRIVES AND IS AT BEDSIDE. PT AND MOTHER ARE AWARE OF PLAN OF CARE. TO AWAIT RETURN CALL FROM HOSPITALIST FROM [facility] AT THIS TIME. WILL CONTINUE TO MONITOR.
[2023-03-22 18:45] VITALS: BP 128/72; PULSE 80; RESP 18; TEMP 37.2; O2SAT 100
--- NOTE | 2023-03-22 18:47 | PC.NURSE ---
PT DECLINES TRANSFER TO [facility] AT THIS TIME, REPORTS HE WILL GO THERE IN THE AM. MOTHER TO TRANSPORT HOME. PT AND MOTHER AREA AWARE OF RISKS TO SIGNING OUT AMA. AMA FORM HAS BEEN SIGNED. [employer] [facility] AND [facility]PITALIST ARE AWARE.
== END 2023-03-22 18:48 | disposition left against medical advice (07) ==
PROVIDERS: Emergency Provider Emergency Medicine; PCP Family Medicine
DX: N20.1 Calculus of ureter (principal); F17.210 Nicotine dependence, cigarettes, uncomplicated
CPT/HCPCS: 36415; 74176; 80053; 81001; 85025; 86140; 96374; 96375; 99284; J1170; J1885; J2405

== ENCOUNTER 2023-03-23 14:19 | Observation (INO) | payer OTHER, SELFPAY ==
--- NOTE | ~2023-03-23 | XR_ITS ---
EXAM: XR abdomen/kub 1V DATE: 03/23/2023 15:19 HISTORY: right flank pain with known right kidney stone per pt . COMPARISON: CT abdomen and pelvis, 03/22/2023. FINDINGS: Clear lung bases. Normal bowel gas pattern. No organomegaly. 2 mm calcification projecting in the mid pelvic ring to the right of midline likely representing a distal ureteral stone detected in the prior CT. 5 mm rounded calcification projecting in the right inferior pelvic ring representing a phlebolith. Regional bones and soft tissues normal for age. IMPRESSION: 2 mm distal right ureteral stone, unchanged. Reviewed, dictated and finalized at location K.
--- NOTE | ~2023-03-23 | XR_ITS ---
EXAMINATION: XR fluoroscopy no charge DATE: 03/24/2023 09:56 INDICATION: Right ureteral stone. TECHNIQUE: 3 intraoperative fluoroscopic views of the pelvis were obtained. I was not present. Fluoro scopy exposure time was 4 seconds. COMPARISON: None. FINDINGS: Images demonstrate a wire in the right ureter. IMPRESSION: 1. Wire in the right ureter. Reviewed, dictated and finalized at location A.
--- NOTE | ~2023-03-23 | XR_ITS ---
Supine and upright views of the abdomen Clinical history: Renal stone COMPARISON: 03/23/2023 Findings: Bowel gas pattern is nonspecific. No evidence for obstruction or free air. Calcified gallst ones are present. Distal right ureteral stone seen on prior CT is not clearly visualized radiographic ally. Osseous structures are intact. Impression: Distal right ureteral stone seen on recent CT (03/22/2023) is not clearly seen radiographically. Cholelithiasis. Reviewed, dictated and finalized at location . Impression: Distal right ureteral stone seen on recent CT (03/22/2023) is not clearly seen r adiographically. Cholelithiasis.
[2023-03-23 14:28] VITALS: BP 134/81; PULSE 98; RESP 20; TEMP 36.6; O2SAT 98
[2023-03-23 15:48] LABS: Basophils Percent Auto 0.2 % (0.2-1.2); Eosinophils Percent Auto 0.3 % (0-4.4); Hematocrit 43.4 % (42.0-52.0); Hemoglobin 14.7 g/dL (14.0-18.0); Immature Granulocyte Absolute 0.02 K/mm3 (0.00-0.031); Immature Granulocyte Percent A 0.2 % (0-0.5); Lymphocytes Absolute Auto 2.53 K/mm3 (0.9-3.2); Lymphocytes Percent Auto 21.1 % (18.3-44.2); Mean Corpuscular HGB Conc 33.9 g/dl (32-36); Mean Corpuscular Hemoglobin 30.6 pg (26-34); Mean Corpuscular Volume 90.2 fl (80-100); Mean Platelet Volume 10.4 fl (7.4-10.4); Monocytes Percent Auto 8.2 % (2.6-8.5); Neutrophils Absolute Auto 8.4 K/mm3 (1.3-6.7); Platelet Count Result 245 k/mm3 (150-375); Red Blood Count 4.81 M/mm3 (4.6-6.20); Red Cell Distribution Width 12.4 % (11.5-14.5)
[2023-03-23 16:00] LABS: Alanine Aminotransferase 19 U/L (6-50); Albumin Level 4.3 g/dL (3.5-5.1); Alkaline Phosphatase 61 U/L (38-126); Anion Gap 7 mmol/L (8-16); Aspartate Amino Transferase 22 U/L (17-59); Bilirubin,Total 0.7 mg/dL (0.2-1.3); Blood Urea Nitrogen 19 mg/dL (9-20); Calcium 8.8 mg/dL (8.4-10.2); Carbon Dioxide 31 mmol/L (22-30); Chloride 102 mmol/L (98-107); Estimated CRCL calculation 95 ml/min; Estimated Glomerular Filt Rate > 60; Glucose 94 mg/dL (65-110); Potassium 3.4 mmol/L (3.4-5.0); Sodium 140 mmol/L (137-145)
[2023-03-23] MEDS: MORPHINE SULFATE (*CRX) 4 MG/ML INJ IV PUSH ×2 (16:03→21:34)
[2023-03-23] MEDS: SODIUM CHLORIDE 0.9% IV 1,000 ML 999 ML IV CONT (16:04)
[2023-03-23 16:07] VITALS: BP 130/85; PULSE 90; RESP 18; O2SAT 95
--- NOTE | 2023-03-23 16:21 | ED.MALEGU ---
HPI - Male Genitourinary General Chief complaint: Urogenital-Male Stated complaint: kidney stone Time Seen by Provider: 03/23/23 15:05 History of Present Illness HPI Narrative: Patient is a 37-year-old male who presents ER with reports of kidney stone. Diagnosed yesterday at [place]. He ended up leaving AMA because he needed to arrange some things at home. He returns here today in hopes of getting a stent. Pain is persistent on the right side. No fevers or chills or sweats. Occasional nausea and vomiting. Related Data Home Medications Medication Instructions Recorded Confirmed No Home Medications 03/22/23 03/22/23 Allergies Allergy/AdvReac Type Severity Reaction Status Date / Time No Known Allergies Allergy Verified 03/23/23 18:04 Review of Systems Review of Systems: All systems reviewed & are unremarkable except as noted in HPI and below Constitutional: Constitutional: Denies chills, Denies fatigue and Denies fever(s) ENT: Denies nasal congestion and Denies sore throat Cardiovascular: Cardiovascular: Denies chest pain, Denies rapid heart rate and Denies radiating jaw, neck or arm pain Respiratory: Respiratory: Denies cough and Denies dyspnea Gastrointestinal: Gastrointestinal: Reports abdominal pain, Reports nausea and Reports vomiting Genitourinary: Genitourinary: Denies hematuria, Denies dysuria, Denies testicular pain and Reports urinary frequency PMFSH Past Medical History Medical History Loss of teeth due to extraction Marijuana smoker Obesity Pleurisy without effusion Smoker Ureterolithiasis Surgical History Surgical History History of laparoscopic appendectomy Family History Family History Mother Heart disease Grandparent Diabetes mellitus Social History Social History Smoking packs per day: 1 Smoking cigarettes per day: 20.0 Years smoked: 20 Smoking pack-years: 20.00 Smoking status: Current every day smoker Alcohol intake: never Alcohol use details: denies Substance use: current Substance use type: marijuana Other substance usage details: 3 TIMES A WEEK Last use: 05/06/2020 Lack of Transportation: No Lack of Food: Never True Current Housing: I Have Housing Concerned About Future Housing: No Difficulty Paying Gas/Electric Bills: No Difficulty Paying for Meds: No Currently Unemployed: No Education: High School Diploma/GED Difficulty w/ Childcare or Family Care: No Living arrangements: with family Spiritual care concerns: No Exam Narrative: GENERAL: Well-appearing, well-nourished, and in no acute distress. HEAD: Normocephalic, atraumatic. EYES: PERRL and EOMIENT: Mucous membranes moist. NECK: Supple. CHEST: Clear to auscultation. No respiratory distress. HEART: Regular rate and rhythm. Normal peripheral pulses. ABDOMEN: Soft, tender palpation right lower quadrant without guarding, nondistended. EXTREMITIES: Normal range of motion. No edema. SKIN: Warm, dry, no rash. NEURO: Alert and oriented x3. PSYCH: Normal mood and affect. Course Course Emergency Course: Discussed case with urology. Will admit for observation. We will strain urine and give IV antibiotics and IV fluids. Vital Signs Vital signs: Vital Signs Temperature 98 F 03/23/23 14:28 Pulse Rate 98 03/23/23 14:28 Respiratory Rate 20 03/23/23 14:28 Blood Pressure 134/81 03/23/23 14:28 Pulse Oximetry 98 03/23/23 14:28 Oxygen Delivery Room Air 03/23/23 14:28 Temperature 99.1 F 03/23/23 17:50 Pulse Rate 81 03/23/23 17:50 Respiratory Rate 16 03/23/23 17:50 Blood Pressure 123/78 03/23/23 17:50 Pulse Oximetry 97 03/23/23 17:50 Oxygen Delivery Room Air 03/23/23 14:28 MDM - Male [place]
--- NOTE | 2023-03-23 16:40 | WPDURCON ---
Assessment and Plan Assessment and plan (1) Ureterolithiasis: Code(s): N20.1 - Calculus of ureter Status: Acute Assessment and Plan: Obtain Consent: Cystoscopy, right ureteroscopy with stone extraction, possible right stent placement, right retrograde pyelogram, possible holmium laser. Plan to discharge home after surgery tomorrow if doing ok. Keep overnight for pain control and plan to go to the OR tomorrow with Dr. Tia CORNELL after midnight tonight. Push fluids, strain urine. Repeat KUB in the morning to ensure stone hasn't passed. Urology Consult Note HPI Date Seen: 03/23/23 Time Seen: 16:40 Primary Care Provider: Juan Ramon Galaviz, Consult Narrative Reason for consult: Right Ureteral Stone Narrative: Shukri Izaguirre is a 37 year old male who initially presented to [facility] yesterday for acute flank pain in the right that radiated to the RLQ. He states he also had nausea and vomiting as well, but denies fever, chills, frequency, urgency, hematuria or dysuria. He was found in [place] to have a 3mm right distal ureteral stone on CT, a WBC of 18.2, which is improved now to 12, creatinine today of 1.20 and is afebrile. He was recommended for transfer to [place] and to have a ureteroscopy, however he chose to leave [place] and come to [place] today since pain didn't improve. He has a history of passing stones previously. He has received a dose of Rocephin, but pain is not well tolerated on pain meds at this time. Review of Systems Cardiovascular: Cardiovascular: Denies chest pain Respiratory: Respiratory: Reports no additional respiratory complaints Gastrointestinal: Gastrointestinal: Reports abdominal pain, Reports nausea and Reports vomiting Genitourinary: Genitourinary: Denies hematuria, Denies dysuria, Reports flank pain, Denies urinary frequency, Denies urinary hesitancy, Denies urinary incontinence and Denies urinary urgency [facility] Past Medical History Medical History Loss of teeth due to extraction Marijuana smoker Obesity Pleurisy without effusion Smoker Ureterolithiasis Surgical History Surgical History History of laparoscopic appendectomy Family History Family History Mother Heart disease Grandparent Diabetes mellitus Social History Social History Smoking packs per day: 1 Smoking cigarettes per day: 20.0 Years smoked: 15 Smoking pack-years: 15.00 Smoking status: Current every day smoker Alcohol intake: never Alcohol use details: denies Substance use: current Substance use type: marijuana Other substance usage details: 3 TIMES A WEEK Last use: 05/06/2020 Living arrangements: with family Meds Home Medications and Allergies Home Medications Medication Instructions Recorded Confirmed Type No Home Medications 03/22/23 03/22/23 History Allergies Allergy/AdvReac Type Severity Reaction Status Date / Time No Known Allergies Allergy Verified 03/23/23 14:19 Vital Signs Vital Signs - 24 hr 03/23/23 14:28 03/23/23 16:07 Temperature 98 F Pulse Rate 98 90 Respiratory Rate 20 18 Blood Pressure 134/81 130/85 Pulse Oximetry 98 95 Oxygen Delivery Room Air Exam Const: General: cooperative and comfortable Resp: Effort & Inspection: normal respiratory effort Cardio: Rate: regular rate GI: GI Palp: Yes Soft to palpation and Yes Tenderness to palpation present (GI) (RLQ) : General: Yes CVA tenderness on the right Back/Spine/Pelvis: Back: CVA tenderness (right) Extrem: Right lower extremity: no edema Left lower extremity: no edema Results Labs 03/23/23 15:36 03/23/23 15:36 Labs: Short CBC 03/23/23 Range/Units 15:36 WBC 12.0 H (4.5-10.0) K/mm3 Hgb
[2023-03-23 17:50] VITALS: BP 123/78; PULSE 81; RESP 16; TEMP 37.3; O2SAT 97
--- NOTE | 2023-03-23 18:03 | ADMGEN ---
This patient, Shukri Izaguirre, was admitted to [facility] Surg Room 312-01. Patient/family oriented to hospital policies and general routines including ID bracelet, bed and alarms, visiting hours, pain management, procedures, bathroom and other care routines, personal items, smoking policy, room service/diet, and visiting hours. Information on how to activate the Rapid Response Team has been discussed. Patient/Family are encouraged to report perceived risks to care and to ask questions if they do not understand what they are told or what they should do.
[2023-03-23] MEDS: LACTATED RINGERS 1,000 ML 125 ML IV CONT (18:06)
[2023-03-23] MEDS: HYDROcodone/acetaminophen (*CRX) 5-325 MG TABLET 1 TAB PO (18:09)
[2023-03-23 20:00] VITALS: PULSE 81; RESP 16; O2SAT 97
[2023-03-23 21:54] VITALS: BP 153/90; PULSE 86; RESP 16; TEMP 37; O2SAT 97
[2023-03-24] MEDS: MORPHINE SULFATE (*CRX) 4 MG/ML INJ IV PUSH ×4 (00:09→07:52)
[2023-03-24] MEDS: HYDROcodone/acetaminophen (*CRX) 5-325 MG TABLET 1 TAB PO (00:43)
[2023-03-24] MEDS: ONDANSETRON INJ 4 MG/2 ML VIAL IV PUSH ×2 (01:28→05:14)
[2023-03-24] MEDS: LACTATED RINGERS 1,000 ML 125 ML IV CONT (01:29)
--- NOTE | 2023-03-24 04:47 | WPDHPUPDATE1 ---
History and Physical Update Update Date/Time: 03/24/23 04:47 History and Physical has been reviewed, including an updated exam of the patient. There are NO changes in the patient's condition. Risks, benefits, and alternatives have been discussed and questions answered. Patient agrees to proceed with procedure.
[2023-03-24 06:00] VITALS: BP 143/70; PULSE 83; RESP 20; TEMP 37.2; O2SAT 96
[2023-03-24 08:20] VITALS: BP 148/86; PULSE 70; RESP 20; TEMP 37.4; O2SAT 95
[2023-03-24] MEDS: LACTATED RINGERS 1,000 ML 30 ML IV CONT ×2 (08:20→10:26)
--- NOTE | 2023-03-24 09:12 | WPDANESEPPF ---
Anes - Initial Pre Proc Eval Procedure: Operation Date: 03/24/23 09:30 Proposed Procedures p Cystoscopy,Right Ureteroscopy,Right Retrograde Pyelogram,Right Stone Extraction,Possible Holmium Laser,Possible Stent Placement - Shailesh Weber MD Date/Time: 03/24/23 09:12 Surgeon: Kendra Hyde MD Pre Op Diagnosis: Ureterolithiasis Patient Data Age: 37 Gender: M Height: 1.78 m Weight: 117.63 kg Last Vital Signs Temp 99.3 F 03/24/23 08:20 Pulse 70 03/24/23 08:20 Resp 20 03/24/23 08:20 BP 148/86 H 03/24/23 08:20 Pulse Ox 95 03/24/23 08:20 O2 Del Method Room Air 03/24/23 08:20 Allergies Allergy/AdvReac Type Severity Reaction Status Date / Time No Known Allergies Allergy Verified 03/23/23 18:04 Home Medications Medication Instructions Recorded Confirmed Type No Home Medications 03/22/23 03/22/23 History Laboratory Tests 03/23/23 15:36 WBC 12.0 H K/mm3 (4.5-10.0) RBC 4.81 M/mm3 (4.6-6.20) Hgb 14.7 g/dL (14.0-18.0) Hct 43.4 % (42.0-52.0) MCV 90.2 fl (80-100) MCH 30.6 pg (26-34) MCHC 33.9 g/dl (32-36) RDW 12.4 % (11.5-14.5) Plt Count 245 k/mm3 (150-375) MPV 10.4 fl (7.4-10.4) Immature Gran % (Auto) 0.2 % (0-0.5) Neut % (Auto) 70.0 % (45.5-73.1) Lymph % (Auto) 21.1 % (18.3-44.2) Simpson % (Auto) 8.2 % (2.6-8.5) Eos % (Auto) 0.3 % (0-4.4) Baso % (Auto) 0.2 % (0.2-1.2) Lymph # (Auto) 2.53 K/mm3 (0.9-3.2) Simpson # (Auto) 1.0 H K/mm3 (0.1-0.6) Eos # (Auto) 0.0 K/mm3 (0-0.3) Baso # (Auto) 0.0 K/mm3 (0.0-0.1) Abs Immat Gran (auto) 0.02 K/mm3 (0.00-0.031) Absolute Neuts (auto) 8.4 H K/mm3 (1.3-6.7) Absolute Nucleated RBC 0.0 K/mm3 (0.0-0.012) Nucleated RBC % 0.0 % (0.0-0.2) Sodium 140 mmol/L (137-145) Potassium 3.4 mmol/L (3.4-5.0) Chloride 102 mmol/L (98-107) Carbon Dioxide 31 H mmol/L (22-30) Anion Gap 7 L mmol/L (8-16) BUN 19 mg/dL (9-20) Creatinine 1.20 mg/dL (0.7-1.3) Estim Creat Clear Calc 95 ml/min Estimated GFR > 60 (59 - ) Glucose 94 mg/dL (65-110) Calcium 8.8 mg/dL (8.4-10.2) Total Bilirubin 0.7 mg/dL (0.2-1.3) AST 22 U/L (17-59) ALT 19 U/L (6-50) Alkaline Phosphatase 61 U/L (38-126) Total Protein 8.0 g/dL (6.3-8.2) Albumin 4.3 g/dL (3.5-5.1) Patient hx anesthesia problems: none Family hx anesthesia problems: none Results Review: All pre-operative results and documents have been reviewed as part of the pre-operative evaluation. [facility] Past Medical History Medical History Loss of teeth due to extraction Marijuana smoker Obesity Pleurisy without effusion Smoker Ureterolithiasis Surgical History Surgical History History of laparoscopic appendectomy Family History Family History Mother Heart disease Grandparent Diabetes mellitus Social History Social History Smoking packs per day: 1 Smoking cigarettes per day: 20.0 Years smoked: 20 Smoking pack-years: 20.00 Smoking status: Current every day smoker Alcohol intake: never Alcohol use details: denies Substance use: current Substance use type: marijuana Other substance usage details: 3 TIMES A WEEK Last use: 05/06/2020 Lack of Transportation: No Lack of Food: Never True Current Housing: I Have Housing Concerned About Future Housing: No Difficulty Paying Gas/Electric Bills: No Difficulty Paying for Meds: No Currently Unemployed: No Education: High School Diploma/GED Difficulty w/ Childcare or Family Care: No Living arrangements: with family Spiritual care concerns: No Anes - Eval Final
[2023-03-24] MEDS: fentaNYL CITRATE INJ (*CRX) 100 MCG/2 ML VIAL 50 MCG IV PUSH (09:21)
[2023-03-24] MEDS: KETOROLAC 30 MG/ML VIAL (*BKC) IV PUSH (09:51)
[2023-03-24] MEDS: LIDOCAINE HCL 2% GEL UROJET 10 ML PKG MUCOUS MEM (09:55)
--- NOTE | 2023-03-24 09:58 | P.OP_ITS ---
Procedure Note - Detailed Date of Procedure 03/24/23 Pre-op Diagnosis Right ureteral stone Post-op Diagnosis Same Procedure Performed Cystoscopy, right ureteroscopy with stone extraction Surgeon Shailesh Weber MD Anesthesia General Description of Procedure The patient was brought to the operative suite where he is prepped and draped in a routine sterile fashion while in the dorsal lithotomy position after the uneventful induction of a general LMA anesthetic. A 19F rigid cystoscope was placed in the bladder. There are no urethral strictures. His prostatic urethra measures, approximately, 1.0cm with no median lobe enlargement. The bladder mucosa was endoscopically normal without hyperemia or neoplasm. There was a single, orthotopic ureteral orifice bilaterally. A 0.035 glidewire was advanced into the right renal pelvis under fluoroscopy. The distal ureter was dilated with an 8F/10F ureteral dilator. Ureteroscopy was undertaken with a short, tapered, semi-rigid ureteroscope and the stone was extracted with ease using a 1.9F Escape disposable stone basket. Due to the ease of this manipul ation I opted not to place a ureteral stent. The patient's bladder was emptied and was taken to the recovery room having tolerated this procedure well. Drains No Packing No Pathology Yes Complications No immediate complications
[2023-03-24 10:03] VITALS: BP 122/75; PULSE 88; RESP 16; TEMP 36.5; O2SAT 97
[2023-03-24 10:15] VITALS: BP 115/76; PULSE 82; RESP 10; O2SAT 97
[2023-03-24 10:30] VITALS: BP 126/84; PULSE 71; RESP 12; O2SAT 100
[2023-03-24 10:45] VITALS: BP 132/80; PULSE 83; RESP 13; O2SAT 94
--- NOTE | 2023-03-29 06:14 | PM.DS ---
DS: Admitting Diagnosis Discharge Date 03/24/23 Admitting Diagnosis Ureteral stone DS: Summary Hospital Course Hospital Course: Patient was admitted to the emergency department for a painful obstructing distal ureteral calculus. After overnight admission for pain management and hydration underwent uneventful endoscopic stone extraction. Bladder that day, after demonstrated inability to tolerate oral intake patient was discharge without an indwelling ureteral stent. Time Spent with Patient Time attestation: Total time spent providing and/or coordinating discharge services: Exam Const: General: no acute distress Resp: Effort & Inspection: normal respiratory effort GI: Inspection: non-distended GI Palp: No abdominal tenderness and No Guarding due to palpation present (GI) Auscultation: normal bowel sounds DS: Data Data Completed and Pending Completed studies during hospitalization: Pending at discharge 03/24/23 09:53 Surgical [PTH] Routine Discharge Plan Discharge Attending physician on discharge: Shailesh Weber Consulting providers: Rajeev Huerta; Sarah Sandoval; Venkata Cano; Shailesh Weber; Kanu Cuevas V.; Jremaine Ramsey Discharging Clinician: Shailesh Weber Patient Disposition: Home, Self-Care Activity: other - see discharge instructions Diet: other - see discharge instructions Wound Care Instructions: other - see discharge instructions Discharge Instructions: 1) Activity: no driving or important decisions x24 hours. 2) Diet: resume your normal, pre-admission diet. 3) Follow-up: 1-2 weeks / call for appointment ([phone]). Patient Instructions: Antibiotic Form Stand Alone Forms: General Discharge Information Follow-up/Referrals: Shailesh Weber MD [Physician] - Discharge Medications: New sulfamethoxazole-trimethoprim 800-160 mg tablet 1 tablet PO Q12H Qty: 6 0RF hydrocodone-acetaminophen 5-325 mg tablet 1 - 2 tablet PO Q6H PRN (Reason: pain) Qty: 20 0RF Date of admission: 03/23/23 16:22 Primary Care Provider: Juan Ramon Galaviz Admitting Provider: Kendra Hyde Attending physician on admission: Kendra Hyde Condition: Stable
== END 2023-03-24 11:50 | disposition home or self-care (01) ==
LOC: ANHED 15:20 → ANH3MEDSUR 17:24
PROVIDERS: Urology; Admitting Provider Urology; Emergency Provider Emergency Medicine; PCP Family Medicine; Visit Provider Urology
PROC: (CPT 52352; principal; 2023-03-24 09:30)
DX: N20.1 Calculus of ureter (principal); E66.9 Obesity, unspecified; D72.829 Elevated white blood cell count, unspecified; R09.1 Pleurisy; Z68.37 Body mass index [BMI] 37.0-37.9, adult; F17.210 Nicotine dependence, cigarettes, uncomplicated; F12.90 Cannabis use, unspecified, uncomplicated; Z87.442 Personal history of urinary calculi
CPT/HCPCS: 52352; 36415; 74018; 80053; 82365; 85025; 88300; 96361; 96365; 96374; 96375; 96376; 99199; 99285; A9270; C1769; G0378; G0379; J0696; J1100; J1885; J2250; J2270; J2405; J2704; J3010; J7030; J7120

== ENCOUNTER 2024-06-06 10:20 | Outpatient (CLI) | payer OTHER, SELFPAY ==
[2024-06-06 11:22] LABS: SARS-CoV-2 RNA PCR Negative (Negative)
[2024-06-06 11:24] LABS: Influenza A QL RT-PCR Negative (Negative); Influenza B QL RT-PCR Negative (Negative); RSV RNA, RT-PCR Negative (Negative)
== END 2024-06-06 10:21 | disposition home or self-care (01) ==
LOC: CHSLAB 10:23
PROVIDERS: PCP Family Medicine; Visit Provider Family Medicine
DX: Z20.822 Contact with and (suspected) exposure to COVID-19 (principal)
CPT/HCPCS: 87637

== ENCOUNTER 2024-06-06 18:21 | Emergency (ER) | payer OTHER, SELFPAY ==
[2024-06-06] VITALS (13 sets, daily range): BP systolic 118–157; BP diastolic 71–98; PULSE 90–110; RESP 18; TEMP 36.6–37.6; O2SAT 93–98
--- NOTE | ~2024-06-06 | XR_ITS ---
EXAMINATION: XR chest 1V portable DATE: 06/06/2024 18:52 INDICATION: Chronic cough. TECHNIQUE: A single frontal view of the chest was obtained. COMPARISON: CT abdomen and pelvis 03/22/2023 FINDINGS: There are airspace opacities in left lower lung zone. No pleural effusion or pneumothorax. The heart size is normal. IMPRESSION: 1. Airspace opacities in left lower lung zone, consistent with atelectasis versus pneumonia. Reviewed, dictated and finalized at location A. IMPRESSION: 1. Airspace opacities in left lower lung zone, consistent with atelectasis vers us pneumonia.
--- NOTE | 2024-06-06 18:33 | ED.URI ---
HPI - URI/Sore Throat General Chief Complaint: Upper Respiratory Infection Stated Complaint: uri Source: patient Mode of arrival: ambulatory Limitations: no limitations History of Present Illness HPI Narrative: 38-year-old, smoker status post ureteral stone removal, status post appendectomy, history of bronchitis presents to the ED with a 10 day history of -- nonproductive cough. -- Headache. No focal neurodeficit -- nausea with multiple episodes of vomiting. He has had 2 episodes of vomiting this morning -- diarrhea. He has had 6 episodes of diarrhea today. Stools are watery. No blood or mucus noted. -- Sore throat he went to his primary care physician and tested negative for RSV / influenza /COVID elicited complaint: fever, cough and sore throat Pertinent past history: other ( bronchitis) Onset (ago): day(s) ( 10 days) Consistency: constant Severity: severe Description of mucous: clear Able to tolerate fluids by mouth: Yes Exacerbating factors: nothing Relieving factors: nothing Associated symptoms: fever, chills, diaphoresis, headache, sore throat, nausea, vomiting and diarrhea Treatments prior to arrival: none Related Data Allergies Allergy/AdvReac Type Severity Reaction Status Date / Time No Known Allergies Allergy Verified 03/23/23 18:04 Review of Systems Review of Systems: All systems reviewed & are unremarkable except as noted in HPI and below Constitutional: Constitutional: Reports as per HPI and Reports no additional constitutional complaints Eyes: Eyes: Reports as per HPI and Reports no additional eye complaints ENT: Reports system reviewed and no additional complaints, except as documented, Reports as per HPI and Reports nasal congestion Cardiovascular: Cardiovascular: Reports as per HPI and Reports no additional cardiovascular complaints Respiratory: Respiratory: Reports as per HPI and Reports no additional respiratory complaints Gastrointestinal: Gastrointestinal: Reports as per HPI and Reports no additional gastrointestinal complaints Genitourinary: Genitourinary: Reports no additional male genitourinary complaints and Reports as per HPI Musculoskeletal: Musculoskeletal: Reports no additional musculoskeletal complaints and Reports as per HPI Integumentary/Breasts: Skin/Breast: Reports system reviewed and no additional complaints, except as docu and Reports as per HPI Neurologic: Reports system reviewed and no additional complaints, except as documented and Reports as per HPI Psychiatric: Psychiatric: Reports no additional psychiatric complaints and Reports as per HPI Endocrine: Endocrine: Reports no additional endocrine complaints and Reports as per HPI Hematologic/Lymphatic: Hematologic/Lymphatic: Reports no additional hematologic/lymphatic complaints and Reports as per HPI Allergic/Immunologic: Allergic/Immunologic: Reports no additional allergic/immunologic complaints and Reports as per HPI PMFSH Past Medical History Medical History Loss of teeth due to extraction Marijuana smoker Obesity Pleurisy without effusion Smoker Ureterolithiasis Surgical History Surgical History History of laparoscopic appendectomy Family History Family History Mother Heart disease Grandparent Diabetes mellitus Social History Social History Smoking packs per day: 1 Smoking cigarettes per day: 20.0 Years smoked: 20 Smoking pack-years: 20.00 Smoking status: Current every day smoker Alcohol intake: never Alcohol use details: denies Substance use: current Substance use type: marijuana Other substance usage details: 3 TIMES A WEEK Last use: 05/06/2020 Lack of Transportation: No Lack of Food: Never True Current Housing: I Have Housing Concerned About Fut
[2024-06-06] MEDS: AZITHROMYCIN 250 MG TABLET 500 MG PO (18:56)
[2024-06-06] MEDS: KETOROLAC 30 MG/ML VIAL (*BKC) IV PUSH (18:56)
[2024-06-06 19:00] LABS: Hematocrit 44.7 % (40.0-54.0); Hemoglobin 15.6 g/dL (14.0-18.0); Mean Corpuscular HGB Conc 34.9 g/dL (32-36); Mean Corpuscular Hemoglobin 30.3 pg (27.0-31.0); Mean Corpuscular Volume 86.8 fL (78.0-102.0); Red Blood Count 5.15 M/mm3 (4.70-6.10); White Blood Count 10.8 K/mm3 (4.8-10.8)
[2024-06-06 19:01] LABS: Basophils Absolute Auto 0.05 K/mm3 (0.00-0.10); Basophils Percent Auto 0.5 % (0.0-1.0); Eosinophils Absolute Auto 0.06 K/mm3 (0.02-0.50); Eosinophils Percent Auto 0.6 % (1.0-6.0); Immature Granulocyte Absolute 0.02 K/mm3 (0.00-0.00); Immature Granulocyte Percent A 0.2 % (0.0-0.0); Lymphocytes Absolute Auto 1.99 K/mm3 (1.10-4.50); Lymphocytes Percent Auto 18.4 % (18.0-42.0); Mean Platelet Volume 10.5 fl (8.7-11.0); Monocytes Absolute Auto 1.48 K/mm3 (0.10-0.90); Monocytes Percent Auto 13.7 % (2.0-11.0); Neutrophils Absolute Auto 7.24 K/mm3 (1.70-7.20); Neutrophils Percent Auto 66.6 % (50.0-70.0); Platelet Count Result 252 K/mm3 (150-420)
--- NOTE | 2024-06-06 19:07 | PC.NURSE ---
report to scottie frey.
[2024-06-06 19:15] LABS: Alanine Aminotransferase 26 U/L (16-63); Albumin Level 3.5 g/dL (3.4-5.0); Alkaline Phosphatase 79 U/L (46-116); Anion Gap 12 mmol/L (4-12); Aspartate Amino Transferase 33 U/L (15-37); Bilirubin,Total 0.6 mg/dL (0.00-1.00); Blood Urea Nitrogen 10 mg/dL (7-18); Calcium 8.8 mg/dL (8.5-10.1); Carbon Dioxide 25 mmol/L (21-32); Chloride 96 mmol/L (98-108); Estimated CRCL calculation 122 ml/min; Estimated Glomerular Filt Rate > 60; Glucose 108 mg/dL (70-99); Osmolality Calculated 276 mOsm/kg (285-295); Sodium 133 mmol/L (136-145); Total Protein 8.2 g/dL (6.4-8.2)
[2024-06-06 19:17] LABS: Lipase 15 U/L (16-77)
[2024-06-06 19:21] LABS: Lactic Acid Reflex 1.3 mmol/L (0.4-2.0)
[2024-06-06 19:30] LABS: Strep Group A RT-PCR NOT DETECTED (Negative)
[2024-06-06] MEDS: LACTATED RINGERS 1,000 ML 999 ML IV CONT (19:30)
[2024-06-06 20:37] LABS: MRSA (PCR) NOT DETECTED (NOT DETECTE)
--- NOTE | 2024-06-09 13:48 | PC.NURSE ---
blood culture reports x2 reviewed, preliminary reports show no growth to date
--- NOTE | 2024-06-10 14:20 | PC.NURSE ---
preliminary blood cultures x2 reviewed. no growth to date.
--- NOTE | 2024-06-13 12:18 | PC.NURSE ---
FINAL BLOOD CULTURE RESULTS X2: NO GROWTH AFTER 5 DAYS.
== END 2024-06-06 20:15 | disposition home or self-care (01) ==
PROVIDERS: Emergency Provider Internal Medicine Critical Care Medicine; PCP Family Medicine
DX: J18.9 Pneumonia, unspecified organism (principal); F17.210 Nicotine dependence, cigarettes, uncomplicated
CPT/HCPCS: 36415; 71045; 80053; 83605; 83690; 85025; 87040; 87641; 87651; 96365; 96375; 99284; A9270; J0696; J1885; J7120